=== PATIENT | female | born 2000 | race American Indian/Alaskan Native ===

== ENCOUNTER 2022-03-23 19:55 | Emergency (ER) | payer MEDICAID ==
[2022-03-23] MEDS ORDERED: LIDOCAINE (2%) 20 MG/1 ML VIAL 20 ML MDV INFILTRATI STA (21:48)
--- NOTE | 2022-03-23 21:51 | Emergency Department Report ---
ED Laceration HPI - HPI Chief Complaint: Wound/Laceration Stated Complaint: LACERATION ON RT KNEE Time Seen by Provider: 03/23/22 21:47 Occurred When: Today Location: Lower Extremity Severity: mild Tetanus Status: Up to Date Laceration Symptoms: Yes Pain, No Foreign Body Sensation, No Numbness, No Weakness Other History: Picture fell off wall and struck Ms. Gonzalez just below her rigth knee resulting in laceration. ED Review of Systems ROS: Stated complaint: LACERATION ON RT KNEE Other details as noted in HPI Comment: All other systems reviewed and negative ED Past Medical Hx - Medications Home Medications: Home Medications Medication Instructions Recorded Confirmed Last Taken Type cephALEXin [Keflex] 500 mg PO Q8HR #21 cap 03/24/22 Unknown Rx Laceration Physical Exam - Exam General: Vital signs noted. No distress. Alert and acting appropriately. Wound Length (cm): 2 Laceration Location: Lower Extremity Full Body Front + Back: 1 - laceration to this region. Full Rom of knee. pulse 2+ Laceration Exam: Yes Normal Distal CMS, No Foreign Body, No Exposed Tendon, Vessel, or Nerve, No Tendon Injury - Laceration /Wound Repair Right Leg Wound Location: lower extremity Wound's Depth, Shape: linear Wound Explored: clean Betadine Prep?: No Anesthesia: 1% Lidocaine Wound Repaired With: sutures Suture Size/Type: 4:0 Number of Sutures: 4 Critical care attestation.: If time is entered above; I have spent that time in minutes in the direct care of this critically ill patient, excluding procedure time. ED Disposition Clinical Impression: Laceration of right lower leg Disposition: 01 HOME / SELF CARE / HOMELESS Is pt being admited?: No Does the pt Need Aspirin: No Condition: Stable Instructions: Sutured Wound Care, Laceration Care, Adult, [id number], Sutures, Justin, or Adhesive Wound Closure, [id number] Additional Instructions: Please sure to follow-up in 10 days to be evaluated for possible suture removal keep wound clean and with antibacterial soap Prescriptions: cephALEXin [Keflex] 500 mg PO Q8HR #21 cap Referrals: DONNA JOHNSON MD [Staff Physician] - 3-5 Days
[2022-03-24 00:39] VITALS: BP 122/72
== END 2022-03-24 00:42 | disposition home or self-care (01) ==
LOC: ED 19:55
DX: S81.011A Laceration without foreign body, right knee, initial encounter (principal); W19.XXXA Unspecified fall, initial encounter; Y93.89 Activity, other specified; Y92.89 Other specified places as the place of occurrence of the external cause; Y99.8 Other external cause status
CPT/HCPCS: 12001; 99282; J3490